=== PATIENT | female | born 1975 | race Caucasian/White ===

== ENCOUNTER → 2018-03-21 15:26 | Outpatient (CLI) | payer OTHER, SELFPAY ==
--- NOTE | 2018-03-21 | DI.RAD.S_ITS ---
PROCEDURE: XR CERVICAL SPINE 2V OR 3V INDICATIONS: 43 year-old female with neck pain 6 weeks after surgery. TECHNIQUE: 3 view(s) of the cervical spine were acquired. COMPARISON: [facility], CERVICAL SPINE 2 OR 3 VIEWS, 09/02/2017, 9:24. FINDINGS: Bones: No fractures or dislocations to the T1 level. The lateral masses of C1 appear intact on the odontoid view. Patient is status post C6-C7 discectomy with interbody fusion. Surgical hardware appears intact and in expected positions. C5-C6 disc degeneration is again noted. No suspicious bony lesions. Soft tissues: No prevertebral soft tissue swelling. IMPRESSION: Status post C6-C7 discectomy with interbody fusion, with surgical hardware intact and in expected positions. Dictated by: Nii Bates M.D. on 03/21/2018 at 16:00 Approved by: Nii Bates M.D. on 03/21/2018 at 16:02
== END ==
PROVIDERS: Family Provider Family Medicine; PCP Family Medicine; Visit Provider Neurological Surgery
DX: M54.2 Cervicalgia (principal)
CPT/HCPCS: 72040

== ENCOUNTER → 2018-04-15 10:06 | Outpatient (CLI) | payer OTHER, SELFPAY ==
--- NOTE | 2018-04-15 | DI.CT.S_ITS ---
PROCEDURE: CT CERVICAL SPINE WO CON INDICATIONS: cervical radiculopathy TECHNIQUE: Noncontrast 3 mm thick sections acquired from the skull base to the T4 level. Sagittal and coronal reformats were then constructed. For radiation dose reduction, the following was used: automated exposure control, adjustment of mA and/or kV according to patient size. COMPARISON: [facility], , C-SPINE WITHOUT CONTRAST, 10/05/2017, 17:11. FINDINGS: Image quality: Excellent. Bones: No fractures or dislocations. Visualized superior ribs are intact. Postsurgical changes related to C6-C7 discectomy and interbody graft placement. There is anterior retaining plate and screws. Expected postoperative alignment. No bridging ossification at this time. No evidence of hardware loosening. Moderate C5-C6 disc degeneration. No bony foraminal stenosis is seen. No bony canal stenosis identified. There is straightening of the normal cervical lordosis. There is mild C4-C5 disc degeneration. Soft tissues: Prevertebral soft tissues are normal in thickness. No paravertebral hematomas. No apical pneumothoraces. There are subcentimeter scattered bilateral cervical lymph nodes, technically non-specific finding. IMPRESSION: Postsurgical change related to C6-C7 anterior cervical discectomy and fusion. Expected postoperative alignment. No evidence of hardware failure or loosening. C4-C5 and C5-C6 disc degeneration as above. Straightening of the normal cervical lordosis. Dictated by: Sy Paul M.D. on 04/15/2018 at 10:35 Approved by: Sy Paul M.D. on 04/15/2018 at 10:49
== END ==
PROVIDERS: Family Provider Family Medicine; PCP Family Medicine; Visit Provider Neurological Surgery
DX: M54.12 Radiculopathy, cervical region (principal); M47.892 Other spondylosis, cervical region
CPT/HCPCS: 72125

== ENCOUNTER → 2018-07-30 09:05 | Outpatient (CLI) | payer OTHER, SELFPAY ==
[2018-07-30 12:15] LABS: TSH w/ Reflex to FT4 0.85 uIU/mL (0.47-4.68)
== END ==
PROVIDERS: PCP Family Medicine; Visit Provider Family Medicine
DX: E03.9 Hypothyroidism, unspecified (principal)
CPT/HCPCS: 36415; 84443

== ENCOUNTER → 2018-08-01 08:56 | Outpatient (CLI) | payer OTHER, SELFPAY | PROVIDERS: Family Provider Family Medicine; PCP Family Medicine; Visit Provider Family Medicine | DX: F31.9 Bipolar disorder, unspecified (principal) | CPT/HCPCS: 80178 ==

== ENCOUNTER → 2018-10-06 08:51 | Outpatient (CLI) | payer OTHER, SELFPAY ==
--- NOTE | 2018-10-06 08:53 | DI.US.S_ITS ---
PROCEDURE: US EXTREMITY NONVASC LOWER LT INDICATIONS: mass in arch of right foot TECHNIQUE: Real-time scanning was performed of the right foot, with image documentation. COMPARISON: None. FINDINGS: Hypoechoic solid-appearing mass present corresponding to the palpable abnormality measuring 1.0 x 0.3 x 0.9 cm. Doppler assessment demonstrated no vascularity. IMPRESSION: A hypoechoic solid-appearing avascular subcutaneous mass corresponding to the palpable abnormality. Findings are nonspecific and if indicated MRI could be performed for further characterization. Dictated by: Shubham Delatorre [facility] Interpreted: Mary Yan MD on 10/06/2018 at 10:44 Approved by: Mary Yan M.D. on 10/06/2018 at 15:16
== END ==
PROVIDERS: PCP Family Medicine; Visit Provider Family Medicine
DX: R22.41 Localized swelling, mass and lump, right lower limb (principal)
CPT/HCPCS: 76882

== ENCOUNTER → 2019-01-23 07:26 | Outpatient (CLI) | payer OTHER, SELFPAY ==
[2019-01-23 09:02] LABS: BUN Creatinine Ratio 16.7 (6-22); Blood Urea Nitrogen 10 mg/dL (7-17); Calcium 9.3 mg/dL (8.4-10.2); Carbon Dioxide 27 mmol/L (22-32); Chloride 104 mmol/L (98-107); Estimated Glomerular Filt Rate > 60.0 mL/min (>60); Glucose 90 mg/dL (70-100); HEMOLYSIS < 15 (0-50); Potassium 4.1 mmol/L (3.4-5.1); Sodium 138 mmol/L (137-145)
[2019-01-23 09:21] LABS: Lithium 0.8 mmol/L (0.6-1.2)
[2019-01-23 09:35] LABS: TSH w/ Reflex to FT4 2.13 uIU/mL (0.47-4.68)
== END ==
PROVIDERS: PCP Family Medicine; Visit Provider Family Medicine
DX: E03.9 Hypothyroidism, unspecified (principal); F31.9 Bipolar disorder, unspecified
CPT/HCPCS: 36415; 80048; 80178; 84443

== ENCOUNTER → 2019-02-03 08:44 | Outpatient (CLI) | payer OTHER, SELFPAY ==
[2019-02-03 13:03] LABS: Lithium 0.3 mmol/L (0.6-1.2)
== END ==
PROVIDERS: PCP Family Medicine; Visit Provider Family Medicine
DX: F31.9 Bipolar disorder, unspecified (principal)
CPT/HCPCS: 36415; 80178

== ENCOUNTER → 2019-10-07 13:30 | Outpatient (CLI) | payer OTHER, SELFPAY ==
--- NOTE | 2019-10-07 | DI.MG.S_ITS ---
BILATERAL DIGITAL SCREENING MAMMOGRAM 3D/2D WITH CAD: 10/07/2019 CLINICAL: Routine screening. Comparison is made to exams dated: 12/08/2017 mammogram, 10/08/2016 mammogram, and 10/22/2015 mammogram - [facility]. There are scattered fibroglandular elements in both breasts. Current study was also evaluated with a Computer Aided Detection (CAD) system. No significant masses, calcifications, or other findings are seen in either breast. There has been no significant interval change. IMPRESSION: NEGATIVE There is no mammographic evidence of malignancy. A 1 year screening mammogram is recommended. This exam was interpreted at Station ID: [id number]. NOTE: For mammograms, a report in lay terms will be sent to the patient. Approximately 15% of breast malignancies will not be visualized mammographically. In the management of a palpable breast mass, a negative mammogram must not discourage biopsy of a clinically suspicious lesion. Electronically Signed By: Bismark Machado M.D. at/:10/09/2019 09:42:09 letter sent: Normal Exam ACR BI-RADS Category 1: Negative 3341F
== END ==
PROVIDERS: PCP Family Medicine; Visit Provider Family Medicine
DX: Z12.31 Encounter for screening mammogram for malignant neoplasm of breast (principal)
CPT/HCPCS: 77063; 77067

== ENCOUNTER → 2019-12-25 08:44 | Outpatient (CLI) | payer OTHER, SELFPAY ==
[2019-12-25 17:27] LABS: TSH w/ Reflex to FT4 2.83 uIU/mL (0.47-4.68)
== END ==
PROVIDERS: PCP Family Medicine; Referring Provider Family Medicine; Visit Provider Family Medicine
DX: E03.9 Hypothyroidism, unspecified (principal)
CPT/HCPCS: 36415; 84443

== ENCOUNTER → 2020-06-20 06:58 | Outpatient (CLI) | payer OTHER, SELFPAY ==
[2020-06-20 08:45] LABS: Add Manual Diff / Slide Review NO; Basophils Absolute Auto 100 /uL (0-100); Basophils Percent Auto 1.1 % (0-2); Eosinophils Absolute Auto 100 /uL (0-450); Eosinophils Percent Auto 1.9 % (2-4); Hematocrit 39.7 % (36-46); Hemoglobin 13.2 g/dL (12.0-16.0); Lymphocytes Absolute Auto 2000 /uL (1100-4500); Lymphocytes Percent Auto 34.8 % (25-40); Mean Corpuscular HGB Conc 33.2 % (30-36); Mean Corpuscular Hemoglobin 30.4 PG (26-34); Mean Corpuscular Volume 91.5 fL (80-100); Monocytes Absolute Auto 400 /uL (0-900); Monocytes Percent Auto 6.6 % (3-14); Neutrophils Absolute Auto 3200 /uL (1500-7000); Neutrophils Percent Auto 55.6 % (50-75); Platelet Count 297 X10^3/uL (150-400); Red Blood Cell Count 4.34 X10^6/uL (4.0-5.2); Red Cell Distribution Width 12.7 % (11.6-14.8); White Blood Cell Count 5.7 X10^3/uL (4.5-11.0)
[2020-06-20 08:56] LABS: Alanine Aminotransferase 16 IU/L (<35); Albumin 4.1 g/dL (3.5-5.0); Albumin Globulin Ratio 1.8 (1.0-2.8); Alkaline Phosphatase 51 U/L (38-126); Aspartate Aminotransferase 24 IU/L (14-36); BUN Creatinine Ratio 33.9 (6-22); Bilirubin Total 0.3 mg/dL (0.2-1.3); Blood Urea Nitrogen 19 mg/dL (7-17); Carbon Dioxide 25 mmol/L (22-32); Chloride 105 mmol/L (98-107); Cholesterol 152 mg/dL (140-199); Estimated Glomerular Filt Rate > 60.0 mL/min (>60); Globulin 2.3 g/dL (1.7-4.1); Glucose 93 mg/dL (70-100); HDL Cholesterol 56 mg/dL (40-60); HEMOLYSIS < 15 (0-50); LDL Cholesterol Calculated 85 mg/dL (<100); Potassium 4.5 mmol/L (3.4-5.1); Sodium 137 mmol/L (137-145); Total Protein 6.4 g/dL (6.3-8.2); Triglycerides 55 mg/dL (35-150)
[2020-06-20 09:09] LABS: Free T3, Triiodothyronine Free 2.82 pg/mL (2.77-5.27); Free T4, Direct Thyroxine 1.11 ng/dL (0.78-2.19)
[2020-06-20 09:23] LABS: Thyroid Stimulating Hormone 1.74 uIU/mL (0.47-4.68)
[2020-06-21 06:36] LABS: Thyroid Peroxidase Antibodies <9 IU/mL (0-34)
== END ==
PROVIDERS: PCP Family Medicine; Referring Provider Family Medicine; Visit Provider Naturopath
DX: Z00.00 Encounter for general adult medical examination without abnormal findings (principal); E03.9 Hypothyroidism, unspecified
CPT/HCPCS: 36415; 80053; 80061; 84439; 84443; 84481; 85025; 86376

== ENCOUNTER → 2020-08-13 11:42 | Outpatient (CLI) | payer OTHER, SELFPAY ==
--- NOTE | 2020-08-13 11:44 | DI.RAD.S_ITS ---
PROCEDURE: XR FOOT LT MIN 3V INDICATIONS: left medial foot pain x1 month TECHNIQUE: 3 views of the foot were acquired. COMPARISON: [facility], CR, FOOT 3V LEFT, 01/14/2015, 8:58. FINDINGS: Bones: No fractures or dislocations. No suspicious bony lesions. Soft tissues: No tibiotalar joint effusion. Achilles tendon appears normal. IMPRESSION: No trauma found. Source of current pain is not seen. Dictated by: Kane Schultz M.D. on 08/13/2020 at 13:22 Approved by: Kane Schultz M.D. on 08/13/2020 at 13:24
== END ==
PROVIDERS: PCP Family Medicine; Referring Provider Family Medicine; Visit Provider Family Medicine
DX: M79.672 Pain in left foot (principal)
CPT/HCPCS: 73630

== ENCOUNTER → 2020-08-19 09:43 | Outpatient (CLI) | payer OTHER, SELFPAY ==
[2020-08-21 08:20] LABS: COVID19 Sendout Not Detected (Not Detect)
== END ==
PROVIDERS: PCP Family Medicine; Visit Provider Physician Assistant
DX: Z11.59 Encounter for screening for other viral diseases (principal)
CPT/HCPCS: 87635

== ENCOUNTER → 2020-09-16 13:56 | Outpatient (CLI) | payer OTHER, SELFPAY ==
[2020-09-16 15:29] LABS: COVID19 -Nasal RAPID Negative (Negative)
== END ==
PROVIDERS: PCP Family Medicine; Visit Provider Physician Assistant
DX: Z11.59 Encounter for screening for other viral diseases (principal)
CPT/HCPCS: 87635

== ENCOUNTER → 2020-10-09 08:06 | Outpatient (CLI) | payer OTHER, SELFPAY ==
--- NOTE | 2020-10-09 | DI.MG.S_ITS ---
BILATERAL DIGITAL SCREENING MAMMOGRAM 3D/2D WITH CAD: 10/09/2020 CLINICAL: Routine screening. Comparison is made to exams dated: 10/07/2019 mammogram, 12/08/2017 mammogram, and 10/08/2016 mammogram - [facility]. There are scattered fibroglandular elements in both breasts. Current study was also evaluated with a Computer Aided Detection (CAD) system. No significant masses, calcifications, or other findings are seen in either breast. There has been no significant interval change. IMPRESSION: NEGATIVE There is no mammographic evidence of malignancy. A 1 year screening mammogram is recommended. This exam was interpreted at Station ID: [id number]. NOTE: For mammograms, a report in lay terms will be sent to the patient. Approximately 15% of breast malignancies will not be visualized mammographically. In the management of a palpable breast mass, a negative mammogram must not discourage biopsy of a clinically suspicious lesion. Electronically Signed By: Jelly joe/edmund:10/09/2020 08:42:37 letter sent: Normal Exam ACR BI-RADS Category 1: Negative 3341F
== END ==
PROVIDERS: PCP Family Medicine; Referring Provider Family Medicine; Visit Provider Family Medicine
DX: Z12.31 Encounter for screening mammogram for malignant neoplasm of breast (principal)
CPT/HCPCS: 77063; 77067

== ENCOUNTER 2021-08-07 15:45 | Emergency (ER) | payer OTHER, SELFPAY ==
[2021-08-07 15:47] VITALS: BP 136/81; PULSE 102; RESP 16; TEMP 36.9; O2SAT 100; BMI 26.6
--- NOTE | 2021-08-07 17:07 | ED.PSYCH ---
HPI - Psych General Chief Complaint: Psychiatric Symptoms Stated Complaint: Not Sleeping Time Seen by Provider: 08/07/21 16:09 Source: patient Mode of arrival: Ambulatory Related Data Previous Rx's Medication Instructions Recorded cyclobenzaprine 10 mg tablet 10 mg PO TID PRN #30 tab 12/26/19 rizatriptan 10 mg disintegrating See Rx Instructions PO .COMPLEX 05/20/20 tablet #20 tab levothyroxine 150 mcg tablet 150 mcg PO QAM #90 tab 11/07/20 (Levoxyl) trazodone 50 mg tablet 100 mg PO HS #180 tab 12/30/20 disulfiram 250 mg tablet 250 mg PO DAILY #30 tab 03/06/21 escitalopram oxalate 20 mg tablet 20 mg PO DAILY #90 tab 04/08/21 naltrexone 8 mg-bupropion 90 mg See Rx Instructions PO BID #120 tab 04/08/21 tablet,extended release (Contrave) alprazolam 0.5 mg tablet 0.5 mg PO BID #30 tab 08/04/21 hydrocodone 5 mg-acetaminophen 325 1 tab PO BID PRN #30 tab 08/04/21 mg tablet Allergies Allergy/AdvReac Type Severity Reaction Status Date / Time No Known Allergies Allergy Uncoded 04/08/21 09:37 Patient History Medical History ADHD (~2015) Anxiety (~2003) Bipolar disorder (~2011) Bulimia Generalized anxiety disorder Hearing deficit Hypothyroidism (~2011) Kidney stones (~2011) Migraines Over weight Post traumatic stress disorder (PTSD) (~2011) Surgical History Anesthesia Family history of stent (~2011) S/P cervical spinal fusion S/P laparoscopic supracervical hysterectomy Status post delivery (~1991) Status post delivery (~2000) Status post cholecystectomy (~2003) Status post hysterectomy (~2006) Family History Grandfather Heart disease Grandmother Diabetes mellitus Father Lung cancer Social History marital status: 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 Smoking Status: Former smoker alcohol intake: current substance use type: does not use Smoking Status: Former smoker alcohol intake frequency: 0-2 drinks per day Substance Use Type: marijuana Exam Initial Vital Signs Initial Vital Signs: Vital Signs Temperature 98.5 F 08/07/21 15:47 Pulse Rate 102 H 08/07/21 15:47 Respiratory Rate 16 08/07/21 15:47 Blood Pressure 136/81 08/07/21 15:47 Pulse Oximetry 100 08/07/21 15:47 Course Orders Ordered: ED Orders 08/07/21 16:14 Consult to SPRAY MIXER - Greens Laborer Stat Vital Signs Vital signs: Vital Signs - 8 hr 08/07/21 15:47 Temperature 98.5 F Pulse Rate 102 H Respiratory Rate 16 Blood Pressure 136/81 Pulse Oximetry 100 Discharge Plan Departure Prescriptions: No Action cyclobenzaprine 10 mg tablet 10 mg PO TID PRN (Reason: muscle spasm) Qty: 30 RF: 0 disulfiram 250 mg tablet 250 mg PO DAILY Qty: 30 RF: 0 hydrocodone-acetaminophen 5-325 mg tablet 1 tab PO BID PRN (Reason: pain) Qty: 30 RF: 0 alprazolam 0.5 mg tablet 0.5 mg PO BID Qty: 30 RF: 0 Contrave 8-90 mg tablet extended release See Rx Instructions PO BID Qty: 120 RF: 2 escitalopram oxalate 20 mg tablet 20 mg PO DAILY Qty: 90 RF: 3 rizatriptan 10 mg tablet,disintegrating See Rx Instructions PO .COMPLEX Qty: 20 RF: 0 levothyroxine [Levoxyl] 150 mcg tablet 150 mcg PO QAM Qty: 90 RF: 3 trazodone 50 mg tablet 100 mg PO HS Qty: 180 RF: 3 Referrals: Guadalupe Hollis DO [Primary Care Provider] -
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
[2021-08-07] MEDS: HYDROCODONE/ACET 5/325 TABLET 1 TAB PO (17:52)
[2021-08-07] MEDS: LORazepam 0.5 MG TABLET 1 MG PO (17:53)
[2021-08-07 18:09] LABS: Add Manual Diff / Slide Review NO; Basophils Absolute Auto 100 /uL (0-100); Basophils Percent Auto 0.8 % (0-2); Eosinophils Absolute Auto 100 /uL (0-450); Eosinophils Percent Auto 0.7 % (2-4); Hematocrit 37.6 % (36-46); Hemoglobin 12.6 g/dL (12.0-16.0); Lymphocytes Absolute Auto 1800 /uL (1100-4500); Lymphocytes Percent Auto 19.6 % (25-40); Mean Corpuscular HGB Conc 33.6 % (30-36); Mean Corpuscular Hemoglobin 30.7 PG (26-34); Mean Corpuscular Volume 91.3 fL (80-100); Monocytes Absolute Auto 400 /uL (0-900); Monocytes Percent Auto 4.6 % (3-14); Neutrophils Absolute Auto 6800 /uL (1500-7000); Neutrophils Percent Auto 74.3 % (50-75); Platelet Count 402 X10^3/uL (150-400); Red Blood Cell Count 4.12 X10^6/uL (4.0-5.2); Red Cell Distribution Width 12.8 % (11.6-14.8); White Blood Cell Count 9.1 X10^3/uL (4.5-11.0)
[2021-08-07 18:24] LABS: Alanine Aminotransferase 28 IU/L (<35); Albumin 4.4 g/dL (3.5-5.0); Albumin Globulin Ratio 1.8 (1.0-2.8); Alkaline Phosphatase 49 U/L (38-126); Aspartate Aminotransferase 35 IU/L (14-36); Bilirubin Total 0.3 mg/dL (0.2-1.3); Blood Urea Nitrogen 13 mg/dL (7-17); Calcium 8.9 mg/dL (8.4-10.2); Carbon Dioxide 26 mmol/L (22-32); Chloride 104 mmol/L (98-107); Estimated Glomerular Filt Rate > 60.0 mL/min (>60); Ethanol (ETOH) < 10 mg/dL; Globulin 2.5 g/dL (1.7-4.1); Glucose 84 mg/dL (70-100); HEMOLYSIS < 15 (0-50); Potassium 3.8 mmol/L (3.4-5.1); Sodium 137 mmol/L (137-145); Total Protein 6.9 g/dL (6.3-8.2)
[2021-08-07 19:02] LABS: COVID19 - ADMIT (NP swab/PCR) Negative (Negative)
[2021-08-07 19:03] LABS: Thyroid Stimulating Hormone 2.53 uIU/mL (0.47-4.68)
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
== END 2021-08-07 19:25 | disposition home or self-care (01) ==
PROVIDERS: Emergency Provider Nurse Practitioner Critical Care Medicine; PCP Family Medicine
DX: F51.04 Psychophysiologic insomnia (principal); F31.9 Bipolar disorder, unspecified; Z20.822 Contact with and (suspected) exposure to COVID-19
CPT/HCPCS: 80053; 80320; 84443; 85025; 87635; 99283; C9803

== ENCOUNTER 2021-08-19 05:56 | Emergency (ER) | payer OTHER, SELFPAY ==
[2021-08-19] VITALS (7 sets, daily range): BP systolic 124–134; BP diastolic 63–87; PULSE 62–86; RESP 14–30; TEMP 36.4; O2SAT 96–100; BMI 26.6
--- NOTE | 2021-08-19 05:55 | ED.GENADULT ---
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 Urine Glucose Negative Bedside Urine Bilirubin - Negative Bedside Urine Ketone - Negative Urine Specific [place] 1.015 Bedside Urine Occult Blood - Negative Bedside Urine pH 7.5 Bedside Urine Protein - Negative Bedside Urine Urobilinogen - Negative Bedside Urine Nitrite - Negative Bedside Urine Leukocytes - Negative Esterase Discharge Plan Departure Patient Disposition: Xfer Psychiatric Hosp Clinical Impression: Bipolar I disorder with marry Referrals: Guadalupe Hollis DO [Primary Care Provider] - <Jimmie Pineda DO - Last Filed: 08/22/21 08:37> Restraint Uucy-zn-Qije Evaluation Lnqm-fg-Tlye #1: Date: 08/19/21 Time: 10:45 Patient Appearance: Well Groomed Level of Consciousness: Alert and Awake Speech Pattern: Animated, Pressured and Rambling Mood Description: Angry, Anxious, Fearful and Suspicious Ability to Follow Directions: Poor Hallucination Type: None Thought Process: Disorganized, Perseveration and Flight of ideas Respirations: Normal respiratory rate Cardiac: Regular Rate Circulation: Moves all extremities Behavior necessitating restraint: Agitated and Paranoid/Delusional Restraint risks explained to patient: Yes Restraint risks explained to family: Yes Reaction to Intervention: Restless, Indicating Needs and Agitated, Constant Movement Restraint Needs: Continue Restraints Additional Comments: trusted family friend contacted to come be with patient
[2021-08-19] MEDS: SODIUM CHLORIDE 0.9% 1,000 ML 150 ML IV (06:32)
[2021-08-19 06:46] LABS: Acetaminophen < 10 ug/mL (10-30); Salicylate < 1.0 mg/dL (<20)
[2021-08-19 07:34] LABS: COVID19 - ADMIT (NP swab/PCR) Negative (Negative)
[2021-08-19 09:08] LABS: Appearance Urine UA CLEAR; Bilirubin Urine UA NEGATIVE (NEGATIVE); Color Urine UA YELLOW; Glucose Urine UA NEGATIVE (Negative); Ketones Urine UA NEGATIVE (NEGATIVE); Leukocyte Esterase Urine UA NEGATIVE (NEGATIVE); Nitrite Urine UA NEGATIVE (Negative); Occult Blood Urine UA NEGATIVE (Negative); Protein Urine UA NEGATIVE (Negative); Urobilinogen Urine UA 0.2 E.U./dL (0.2); pH Urine UA 7.5 (4.5-8.0)
[2021-08-19 09:09] LABS: Ur Creatinine Normal (Normal); Ur Specific Gravity Normal (Normal); Urine pH Normal (Normal)
[2021-08-19 09:10] LABS: UR Morphine/Opiate cutoff 300 Negative (Negative); Urine Amphetamines Negative (Negative); Urine Barbiturates Negative (Negative); Urine Benzodiazepines Positive (Negative); Urine Cocaine Negative (Negative); Urine MDMA Negative (Negative); Urine Methadone Negative (Negative); Urine Methamphetamines Negative (Negative); Urine Oxycodone Negative (Negative); Urine Phencyclidine Negative (Negative); Urine Tetrahydrocannabinol Positive (Negative); Urine Tricyclic Antidepressant Negative (Negative)
[2021-08-19 09:16] LABS: Bacteria Urine None Seen; Culture Indicated Urine Cult Not Indicated; RBC Urine None Seen (0-5/HPF); Urine Comments Microscopic Normal; WBC Urine None Seen (0-5/HPF)
--- NOTE | 2021-08-19 10:07 | PC.NURSE ---
Pt given multiple toiletry items and washcloths as requested to wash up in bathroom. AAOx3 at this time. requesting IV removal. OK'd by Dr Pineda.
[2021-08-19 10:19] LABS: Add Manual Diff / Slide Review NO; Basophils Absolute Auto 100 /uL (0-100); Basophils Percent Auto 1.2 % (0-2); Eosinophils Absolute Auto 100 /uL (0-450); Eosinophils Percent Auto 1.1 % (2-4); Hematocrit 35.7 % (36-46); Hemoglobin 11.9 g/dL (12.0-16.0); Lymphocytes Absolute Auto 1400 /uL (1100-4500); Lymphocytes Percent Auto 20.3 % (25-40); Mean Corpuscular HGB Conc 33.4 % (30-36); Mean Corpuscular Hemoglobin 30.6 PG (26-34); Mean Corpuscular Volume 91.6 fL (80-100); Monocytes Absolute Auto 300 /uL (0-900); Monocytes Percent Auto 4.9 % (3-14); Neutrophils Absolute Auto 4800 /uL (1500-7000); Neutrophils Percent Auto 72.5 % (50-75); Platelet Count 346 X10^3/uL (150-400); Red Cell Distribution Width 13.3 % (11.6-14.8); White Blood Cell Count 6.7 X10^3/uL (4.5-11.0)
[2021-08-19 10:26] LABS: Acetaminophen < 10 ug/mL (10-30); Alanine Aminotransferase 57 IU/L (<35); Albumin 4.1 g/dL (3.5-5.0); Alkaline Phosphatase 46 U/L (38-126); Aspartate Aminotransferase 37 IU/L (14-36); BUN Creatinine Ratio 32.7 (6-22); Bilirubin Total 0.4 mg/dL (0.2-1.3); Blood Urea Nitrogen 16 mg/dL (7-17); Carbon Dioxide 26 mmol/L (22-32); Chloride 105 mmol/L (98-107); Estimated Glomerular Filt Rate > 60.0 mL/min (>60); Ethanol (ETOH) < 10 mg/dL; Globulin 2.1 g/dL (1.7-4.1); Glucose 100 mg/dL (70-100); HEMOLYSIS 17 (0-50); Potassium 4.3 mmol/L (3.4-5.1); Salicylate < 1.0 mg/dL (<20); Sodium 138 mmol/L (137-145); Total Protein 6.2 g/dL (6.3-8.2)
[2021-08-19 10:42] LABS: Free T4, Direct Thyroxine 1.49 ng/dL (0.78-2.19)
[2021-08-19 10:56] LABS: Thyroid Stimulating Hormone 0.552 uIU/mL (0.47-4.68)
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
--- NOTE | 2021-08-19 13:59 | PC.NURSE ---
Pt. was provided with a shower. As well as Oral care provided. Daughter is at bedside with patient. Patient continues to be very tearful and apologetic. RN notified.
--- NOTE | 2021-08-19 13:59 | PC.NURSE ---
Pt consulted on by HORACE Mercer. Friend in room visiting. Pt eating lunch. states she would like to shower. assisted to shower by COMMUNITY YOUTH SECRETARY. calm and cooperative at this time. awaiting further orders.
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
--- NOTE | 2021-08-19 14:54 | CM.SWNOTE ---
Addendum entered by Sylvie Rousseau 08/19/21 16:36: HEM INSPECTOR Note HEM INSPECTOR receives call from Dony at [facility] who endorses that patient is accepted pending a normal EKG. It is reported that the accepting provider is Dr. Artem Voss with an estimated arrival time at 1:00 AM. Intake requests that patient bring prescribed medications. HEM INSPECTOR calls patient's daughter and requests that family bring in patient's prescribed medications in case she needs them at accepting facility. Plan: Patient to transfer to [facility] for voluntary inpatient hospitalization. HORACE Joseph Addendum entered by Sylvie Rousseau 08/19/21 15:21: HEM INSPECTOR Note HEM INSPECTOR calls [facility] intake and leaves requesting return call. HEM INSPECTOR receives calls from [facility] [place] and it is reported that they have one female shared room bed, patient is asked about a shared room and declines with preference of private room. HEM INSPECTOR receives call from [facility], it is reported that patient is declined due to high acuity. HEM INSPECTOR endorses that patient has been calm and communicative, but intake continues to decline patient. HEM INSPECTOR calls [facility] and reviews patient with intake, it is reported that they have beds and can review patient. HEM INSPECTOR faxes clinicals for review. Intake reports that they would like to speak with patient on the phone if accepted due to need to confirm patient's ability to accept medications prescribed and voluntarily agree to facility requests. Sylvie Rousseau, HORACE Original Note: HEM INSPECTOR Note HEM INSPECTOR calls [facility] for voluntary bed census. HEM INSPECTOR calls [facility] intake and leaves requesting return call. HEM INSPECTOR calls [facility] intake, it is reported they can review patient but have limited beds. HEM INSPECTOR faxes clinicals for review. HEM INSPECTOR calls [facility] intake and leaves requesting return call. HEM INSPECTOR calls [facility] intake and it is reported that they have beds and can review patient. HEM INSPECTOR faxes clinicals for review. HEM INSPECTOR calls [facility] intake and [facility] intake and it is reported that they do not have beds. Previously patient stated she did not want to go to [facility]. When patient was meeting with her daughter, patient endorses she would go to [facility]. Patient's daughter, friend and have written declarations in support of patient going to inpatient hospitalization. It is the opinion of this HEM INSPECTOR if patient no longer wants to voluntary seek inpatient, HEM INSPECTOR will contact [facility] for dispatch. Plan: HEM INSPECTOR to seek voluntary inpatient bed for patient. HORACE Joseph
--- NOTE | 2021-08-19 16:08 | PC.NURSE ---
Q15 restraint safety checks being done by staff but were documented under patient safety monitoring
--- NOTE | 2021-08-19 16:27 | PC.NURSE ---
Spoke to Asael RN at [facility] and nurse to nurse report given. Advised they will need an EKG to be faxed and RT at bedside for EKG at this time
[2021-08-19] MEDS: LORazepam 0.5 MG TABLET 1 MG PO (17:20)
--- NOTE | 2021-08-19 19:08 | PC.NURSE ---
Starting watch, Introduced myself to the patient and asked is she wanted anything, food, drinks, she was interested in eating.
--- NOTE | 2021-08-19 19:23 | PC.NURSE ---
Patient has started crying, saying she loves her . She is worried about his wellbeing while she is checking into a center.
--- NOTE | 2021-08-19 19:35 | PC.NURSE ---
Patient is calm and asking about a calming medication that was given a bit ago and would like another one. Also patient is enjoying snacking on peanut butter and lalo crackers.
--- NOTE | 2021-08-19 20:02 | PC.NURSE ---
Patient is calm and remaking her bed. She also asked for another hot cider.
[2021-08-19] MEDS: LORazepam 0.5 MG TABLET 2 MG PO (20:21)
[2021-08-19] MEDS: QUETIAPINE 100 MG TABLET 200 MG PO (21:59)
== END 2021-08-19 23:44 ==
PROVIDERS: Emergency Medicine; Emergency Provider Emergency Medicine; PCP Family Medicine
DX: F30.9 Manic episode, unspecified (principal); F41.9 Anxiety disorder, unspecified; R45.1 Restlessness and agitation; Z20.822 Contact with and (suspected) exposure to COVID-19
CPT/HCPCS: 36415; 80053; 80305; 80320; 80329; 81001; 81003; 81025; 84439; 84443; 85025; 87635; 93005; 96360; 96361; 99285; C9803; G0480

== ENCOUNTER → 2021-08-26 07:53 | Outpatient (CLI) | payer OTHER, SELFPAY ==
--- NOTE | 2021-08-26 07:53 | DI.US.S_ITS ---
PROCEDURE: US ABDOMEN LIMITED INDICATIONS: FOLLOW-UP ABDOMINAL WALL HEMATOMA TECHNIQUE: Real-time focused scanning was performed of the abdomen, with image documentation. COMPARISON: [facility], CT, CT ABDOMEN PELVIS WITH CONTRAST, 07/29/2021, 15:22. FINDINGS: On these ultrasound images, no abdominal wall hematoma is now seen. IMPRESSION: No abdominal wall hematoma is seen on these ultrasound images. Dictated by: Paco Brizuela M.D. on 08/26/2021 at 8:04 Approved by: Paco Brizueal M.D. on 08/26/2021 at 8:04
== END ==
PROVIDERS: PCP Family Medicine; Referring Provider Family Medicine; Visit Provider Family Medicine
DX: S30.1XXA Contusion of abdominal wall, initial encounter (principal); R10.32 Left lower quadrant pain; X58.XXXA Exposure to other specified factors, initial encounter
CPT/HCPCS: 76705

== ENCOUNTER → 2021-09-08 07:36 | Outpatient (CLI) | payer OTHER, SELFPAY ==
[2021-09-08 09:01] LABS: Follicle Stimulating Hormone 6.63 mIU/mL
== END ==
PROVIDERS: PCP Family Medicine; Referring Provider Family Medicine; Visit Provider Family Medicine
DX: N95.1 Menopausal and female climacteric states (principal)
CPT/HCPCS: 36415; 83001

== ENCOUNTER → 2021-11-22 16:30 | Outpatient (CLI) | payer OTHER, SELFPAY ==
[2021-11-22 18:24] LABS: Urine N gonorrhoeae NOT DETECTED
[2021-11-22 18:30] LABS: Urine Chlamydia NOT DETECTED
== END ==
PROVIDERS: PCP Family Medicine; Visit Provider Physician Assistant
DX: N89.8 Other specified noninflammatory disorders of vagina (principal); R30.0 Dysuria
CPT/HCPCS: 87086; 87210; 87491; 87591

== ENCOUNTER 2021-11-24 12:30 | Emergency (ER) | payer OTHER, SELFPAY ==
[2021-11-24 13:13] VITALS: BP 111/71; PULSE 84; RESP 16; TEMP 36.7; O2SAT 100
[2021-11-24 13:25] LABS: UR Morphine/Opiate cutoff 300 Negative (Negative); Ur Creatinine Normal (Normal); Ur Specific Gravity Normal (Normal); Urine Amphetamines Negative (Negative); Urine Barbiturates Negative (Negative); Urine Benzodiazepines Negative (Negative); Urine Cocaine Negative (Negative); Urine MDMA Negative (Negative); Urine Methadone Negative (Negative); Urine Methamphetamines Negative (Negative); Urine Oxycodone Negative (Negative); Urine Phencyclidine Negative (Negative); Urine Tetrahydrocannabinol Negative (Negative); Urine Tricyclic Antidepressant Negative (Negative); Urine pH Normal (Normal)
[2021-11-25 18:51] LABS: HIV 1 & 2 Ab/Ag 4th Gen Combo NEGATIVE (NEGATIVE)
[2021-11-26 18:41] LABS: Treponema pallidum Antibodies Non Reactive (Non Reactive)
--- NOTE | 2021-11-27 12:48 | ED_ITS ---
HPI - Female Genitourinary <Alex Keith PA-C - Last Filed: 12/01/21 07:43> General Chief complaint: Urogenital-Female Stated complaint: Manic Episode Time Seen by Provider: 11/24/21 12:43 Source: patient Mode of arrival: Ambulatory History of Present Illness HPI Narrative: 46-year-old female with past medical history bulimia, bipolar disorder, anxiety, hypothyroidism, migraines presents to the ED with several days of vaginal discharge and discomfort. Patient states she has a history of bipolar disorder, had a manic episode in August 2021, had unprotected sex, following which she has had a thick white vaginal discharge, discomfort, feeling that her cervix is descended compared to before. Patient is brought in by her friend who is currently taking care of for. Patient says she is back on her medications now and is in a hypomaniac phase. Patient wishes to be tested for STIs, have her cervix checked out. Patient denies history of prolapse. Patient denies vaginal trauma. Patient was seen in the walk-in clinic, sent to the ED for a pelvic exam and further testing. Patient tested negative for gonorrhea and chlamydia in the walk-in clinic. Patient denies fever, chills, chest pain, shortness of breath, nausea, vomiting, abdominal pain, dysuria, lightheadedness, dizziness, syncope. Patient denies vaginal bleeding, is status post a hysterectomy. Related Data Previous Rx's Medication Instructions Recorded rizatriptan 10 mg disintegrating See Rx Instructions PO .COMPLEX 05/20/20 tablet #20 tab trazodone 50 mg tablet 100 mg PO HS #180 tab 12/30/20 escitalopram oxalate 20 mg tablet 20 mg PO DAILY #90 tab 04/08/21 cyclobenzaprine 10 mg tablet 10 mg PO TID PRN #30 tab 08/25/21 gabapentin 100 mg capsule 100 mg PO TID #90 cap 08/25/21 levothyroxine 150 mcg tablet See Rx Instructions .ROUTE 09/02/21 (Levoxyl) .COMPLEX #90 tab Allergies Allergy/AdvReac Type Severity Reaction Status Date / Time No Known Allergies Allergy Uncoded 11/22/21 16:25 Review of Systems <Alex Keith PA-C - Last Filed: 12/01/21 07:43> Review of Systems ROS Unobtainable: All systems reviewed & are unremarkable except as noted in HPI and below Constitutional Constitutional: Denies chills, Denies fatigue, Denies fever(s), Denies frequent falls, Denies lethargy and Denies weakness Eyes Eyes: Denies change in vision, Denies eye discharge, Denies irritation and Denies loss of vision ENT Ears, Nose, Mouth, and Throat: Denies change in voice, Denies dizziness, Denies neck pain, Denies sore throat and Denies throat swelling Cardiovascular Cardiovascular: Denies chest pain, Denies irregular heart rhythm, Denies lightheadedness, Denies palpitations, Denies dyspnea, Denies dyspnea on exertion and Denies orthopnea Respiratory Respiratory: Denies cough, Denies dyspnea, Denies dyspnea on exertion and Denies wheezing Gastrointestinal Gastrointestinal: Denies abdominal pain, Denies change in bowel habits, Denies diarrhea, Denies nausea and Denies vomiting Genitourinary Genitourinary: Denies hematuria, Denies flank pain, Denies urinary incontinence, Denies urinary urgency and Reports vaginal discharge Comments: feels cervix is descended compared to before, along with some discomfort. Musculoskeletal Musculoskeletal: Denies back pain, Denies muscle weakness, Denies neck pain, Denies numbness and Denies tingling Integumentary/Breasts Skin/Breast: Denies pruritus, Denies erythema, Denies rash and Denies wounds Neurologic Neurologic: Denies behavioral changes, Denies confusion, Denies dizziness, Denies frequent falls, Denies loss of vision, Denies numbness, Denies tingling and Denies weakness Psychiatric Psychiatric: Denies anxiety, Denies behavioral changes, Denies confusion, Denies depression, Denies homicidal ideation and Denies suicidal ideation Endocrine Endocrine: Denies fatigue, Denies flushing and Denies palpitations Hematologic/Lymphatic Hematologic/Lymphatic: Denies easy bruising Allergic/Immunologic Allergic/Immunologic: Denies urticaria, Denies throat swelling and Denies wheezing Patient History <Alex Keith PA-C - Last Filed: 12/01/21 07:43> Medical History ADHD (~2015) Anxiety (~2003) Bipolar disorder (~2011) Bulimia Generalized anxiety disorder Hearing deficit Hypothyroidism (~2011) Kidney stones (~2011) Migraines Post traumatic stress disorder (PTSD) (~2011) Surgical History Anesthesia Family history of stent (~2011) S/P cervical spinal fusion S/P laparoscopic supracervical hysterectomy Status post delivery (~1991) Status post delivery (~2000) Status post cholecystectomy (~2003) Status post hysterectomy (~2006) Family History Grandfather Heart disease Grandmother Diabetes mellitus Father Lung cancer alcohol intake frequency: 0-2 drinks per day Substance Use Type: marijuana Exam <Alex Keith PA-C - Last Filed: 12/01/21 07:43> Initial Vital Signs Initial Vital Signs: Vital Signs Temperature 98.1 F 11/24/21 13:13 Pulse Rate 84 11/24/21 13:13 Respiratory Rate 16 11/24/21 13:13 Blood Pressure 111/71 11/24/21 13:13 Pulse Oximetry 100 11/24/21 13:13 Const General: cooperative, healthy appearing and comfortable HENMT Head: normal to inspection Eyes General: appearance normal, both eyes and all related structures Neck Neck: normal visual inspection Resp Effort & Inspection: normal respiratory effort Auscultation: clear to auscultation bilaterally Cardio Rate: regular rate Rhythm: regular rhythm GI Inspection: normal to inspection Other: abdomen is soft, nondistended, nontender to palpation. General: No CVA tenderness External Female Exam: normal external appearance Speculum Exam - Vagina: normal appearance of the vagina, normal vaginal discharge, no foreign bodies, no lacerations, No vaginal bleeding, no swelling and nontender Speculum Exam - Cervix: normal appearance of the cervix, closed and nontender Bimanual Exam- Vagina & Uterus: normal bimanual exam, normal palpation, normal palpation and No tender OB/External & Speculum: no foreign bodies and No vaginal bleeding Skin General: no rashes or lesions noted Neuro General: patient alert, patient awake and patient oriented x3 Psych Appearance: grossly normal <Chantelle Horta DO - Last Filed: 12/03/21 05:04> Initial Vital Signs Initial Vital Signs: Vital Signs Temperature 98.1 F 11/24/21 13:13 Pulse Rate 84 11/24/21 13:13 Respiratory Rate 16 11/24/21 13:13 Blood Pressure 111/71 11/24/21 13:13 Pulse Oximetry 100 11/24/21 13:13 MDM - Female Genitourinary <Alex Keith PA-C - Last Filed: 12/01/21 07:43> Medical Records Attestation: I reviewed the patient's medical records. Lab Data Attestation: I reviewed the patient's lab results. Lab results narrative: wet prep negative. GC negative. UA negative. Labs: Lab Results 11/24/21 11/24/21 11/24/21 Range/Units 12:54 19:18 19:18 U Opiates 300ng/mL cut Negative (Negative) Ur Oxycodone Screen Negative (Negative) Urine Methadone Screen Negative (Negative) Ur Barbiturates Screen Negative (Negative) U Tricyclic Antidepress Negative (Negative) Ur Phencyclidine Scrn Negative (Negative) Ur Amphetamines Screen Negative (Negative) U Methamphetamines Scrn Negative (Negative) Ur MDMA Scrn (Ecstasy) Negative (Negative) U Benzodiazepines Scrn Negative (Negative) Urine Cocaine Screen Negative (Negative) U Marijuana (THC) Screen Negative (Negative) Treponema pallidum Ab Non reactive (Non Reactive) HIV 1&2 Ab/P24 Ag 4thGn Negative (NEGATIVE) Point of Care Testing Test Results Negative Urine Dip Bedside Urine Glucose Negative Bedside Urine Bilirubin - Negative Bedside Urine Ketone - Negative Urine Specific [place] 1.010 Bedside Urine Occult Blood - Negative Bedside Urine pH 6.5 Bedside Urine Protein - Negative Bedside Urine Urobilinogen - Negative Bedside Urine Nitrite - Negative Bedside Urine Leukocytes - Negative Esterase MDM Narrative Medical decision making narrative: 46-year-old female with past medical history bulimia, bipolar disorder, anxiety, hypothyroidism, migraines presents to the ED with several days of vaginal discharge and discomfort. Concern for STI versus HIV bacterial vaginosis vs diaz vs trichomonas versus prolapse. Pelvic exam unremarkable. Patient was negative for gonorrhea and chlamydia, UTI from the walk-in clinic. Will order tests for syphilis, HIV, wet prep. Likely discharge home. Wet prep negative. HIV and treponema pending results. 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 Will call patient with results. Patient verbalized understanding. <Chantelle Horta DO - Last Filed: 12/03/21 05:04> Lab Data Labs: Lab Results 11/24/21 11/24/21 11/24/21 Range/Units 12:54 19:18 19:18 U Opiates 300ng/mL cut Negative (Negative) Ur Oxycodone Screen Negative (Negative) Urine Methadone Screen Negative (Negative) Ur Barbiturates Screen Negative (Negative) U Tricyclic Antidepress Negative (Negative) Ur Phencyclidine Scrn Negative (Negative) Ur Amphetamines Screen Negative (Negative) U Methamphetamines Scrn Negative (Negative) Ur MDMA Scrn (Ecstasy) Negative (Negative) U Benzodiazepines Scrn Negative (Negative) Urine Cocaine Screen Negative (Negative) U Marijuana (THC) Screen Negative (Negative) Treponema pallidum Ab Non reactive (Non Reactive) HIV 1&2 Ab/P24 Ag 4thGn Negative (NEGATIVE) Point of Care Testing Test Results Negative Urine Dip Bedside Urine Glucose Negative Bedside Urine Bilirubin - Negative Bedside Urine Ketone - Negative Urine Specific [place] 1.010 Bedside Urine Occult Blood - Negative Bedside Urine pH 6.5 Bedside Urine Protein - Negative Bedside Urine Urobilinogen - Negative Bedside Urine Nitrite - Negative Bedside Urine Leukocytes - Negative Esterase Discharge Plan Departure Patient Disposition: Home Clinical Impression: Vaginal discharge Instructions: DI for Pelvic Pain Activity Restrictions/Additional Instructions: Were evaluated in the ED today for vaginal discharge. Your labs for gonorrhea, chlamydia, bacterial vaginitis were negative. The test for HIV and syphilis is still being processed and will take 2 days for results. You may call us back in the ED for results. Please follow-up with your hemmer automatic for further workup. Prescriptions: No Action escitalopram oxalate 20 mg tablet 20 mg PO DAILY Qty: 90 3RF gabapentin 100 mg capsule 100 mg PO TID Qty: 90 1RF cyclobenzaprine 10 mg tablet 10 mg PO TID PRN (Reason: muscle spasm) Qty: 30 0RF rizatriptan 10 mg tablet,disintegrating See Rx Instructions PO .COMPLEX Qty: 20 0RF Rx Instructions: take 1 tab at onset of headache; if no relief may repeat 1 tab in 2hr; max = 3 tabs/day (24hr) PO trazodone 50 mg tablet 100 mg PO HS Qty: 180 3RF levothyroxine [Levoxyl] 150 mcg tablet See Rx Instructions .ROUTE .COMPLEX Qty: 90 3RF Dose Instruction: TAKE 1 TABLET EVERY MORNING Rx Instructions: TAKE 1 TABLET EVERY MORNING Referrals: Guadalupe Hollis DO [Primary Care Provider] - <Chantelle Horta DO - Last Filed: 12/03/21 05:04> Cosign ED Attending Cosignature Attestation: I was immediately available in the department for consultation. Documentation has been reviewed.
== END 2021-11-24 20:28 | disposition home or self-care (01) ==
PROVIDERS: Emergency Medicine; Emergency Provider Student in an Organized Health Care Education/Training Program; PCP Family Medicine
DX: N89.8 Other specified noninflammatory disorders of vagina (principal); R10.2 Pelvic and perineal pain
CPT/HCPCS: 36415; 80305; 81003; 81025; 86780; 87210; 87389; 99282

== ENCOUNTER → 2021-12-12 15:40 | Outpatient (CLI) | payer OTHER, SELFPAY | PROVIDERS: PCP Family Medicine; Visit Provider Family Medicine | DX: N76.0 Acute vaginitis (principal) | CPT/HCPCS: 87070; 87205; 87210; 87252 ==

== ENCOUNTER → 2021-12-29 15:09 | Outpatient (CLI) | payer OTHER, SELFPAY ==
[2021-12-31 05:46] LABS: Candida species Negative (Negative); Gardnerella vaginalis Negative (Negative); Trichomoas vaginalis Negative (Negative)
== END ==
PROVIDERS: PCP Family Medicine; Visit Provider Obstetrics & Gynecology
DX: B96.89 Other specified bacterial agents as the cause of diseases classified elsewhere (principal); N76.0 Acute vaginitis
CPT/HCPCS: 87480; 87510; 87660

== ENCOUNTER → 2022-12-18 14:36 | Outpatient (CLI) | payer OTHER, SELFPAY ==
[2022-12-18 15:22] LABS: Add Manual Diff / Slide Review NO; Basophils Absolute Auto 100 /uL (0-100); Basophils Percent Auto 0.8 % (0-2); Eosinophils Absolute Auto 100 /uL (0-450); Eosinophils Percent Auto 1.1 % (2-4); Hematocrit 44.2 % (36-46); Hemoglobin 14.9 g/dL (12.0-16.0); Lymphocytes Absolute Auto 2200 /uL (1100-4500); Lymphocytes Percent Auto 32.1 % (25-40); Mean Corpuscular HGB Conc 33.8 % (30-36); Mean Corpuscular Hemoglobin 30.2 PG (26-34); Mean Corpuscular Volume 89.4 fL (80-100); Monocytes Absolute Auto 400 /uL (0-900); Monocytes Percent Auto 6.7 % (3-14); Neutrophils Absolute Auto 4000 /uL (1500-7000); Neutrophils Percent Auto 59.3 % (50-75); Platelet Count 288 X10^3/uL (150-400); Red Blood Cell Count 4.95 X10^6/uL (4.0-5.2); White Blood Cell Count 6.7 X10^3/uL (4.5-11.0)
[2022-12-18 15:38] LABS: Alanine Aminotransferase 17 IU/L (<35); Albumin 4.7 g/dL (3.5-5.0); Albumin Globulin Ratio 1.6 (1.0-2.8); Alkaline Phosphatase 66 U/L (38-126); Aspartate Aminotransferase 23 IU/L (14-36); BUN Creatinine Ratio 20.7 (6-22); Bilirubin Total 0.4 mg/dL (0.2-1.3); Blood Urea Nitrogen 12 mg/dL (7-17); Calcium 9.2 mg/dL (8.4-10.2); Carbon Dioxide 32 mmol/L (22-32); Chloride 100 mmol/L (98-107); Estimated Glomerular Filt Rate > 60 mL/min (>60); Glucose 88 mg/dL (70-100); HEMOLYSIS < 15 (0-50); Potassium 3.9 mmol/L (3.4-5.1); Sodium 140 mmol/L (137-145); Total Protein 7.7 g/dL (6.3-8.2)
[2022-12-18 15:55] LABS: Free T3, Triiodothyronine Free 3.41 pg/mL (2.77-5.27); Free T4, Direct Thyroxine 0.93 ng/dL (0.78-2.19)
[2022-12-18 16:09] LABS: Thyroid Stimulating Hormone 3.46 uIU/mL (0.47-4.68)
== END ==
PROVIDERS: PCP Family Medicine; Referring Provider Family Medicine; Visit Provider Family Medicine
DX: E03.9 Hypothyroidism, unspecified (principal); E55.9 Vitamin D deficiency, unspecified; F32.A Depression, unspecified
CPT/HCPCS: 36415; 80053; 82306; 84439; 84443; 84481; 85025

== ENCOUNTER → 2023-12-08 07:47 | Outpatient (CLI) | payer OTHER, SELFPAY ==
[2023-12-08 08:43] LABS: Add Manual Diff / Slide Review NO; Basophils Absolute Auto 100 /uL (0-100); Basophils Percent Auto 0.7 % (0-2); Eosinophils Absolute Auto 100 /uL (0-450); Eosinophils Percent Auto 0.9 % (2-4); Hematocrit 38.9 % (36-46); Hemoglobin 13.2 g/dL (12.0-16.0); Lymphocytes Absolute Auto 2000 /uL (1100-4500); Lymphocytes Percent Auto 29.2 % (25-40); Mean Corpuscular HGB Conc 33.9 % (30-36); Mean Corpuscular Hemoglobin 30.8 PG (26-34); Monocytes Absolute Auto 400 /uL (0-900); Monocytes Percent Auto 6.2 % (3-14); Neutrophils Absolute Auto 4400 /uL (1500-7000); Platelet Count 279 X10^3/uL (150-400); Red Blood Cell Count 4.27 X10^6/uL (4.0-5.2); White Blood Cell Count 6.9 X10^3/uL (4.5-11.0)
[2023-12-08 09:09] LABS: Alanine Aminotransferase 19 IU/L (<35); Albumin 4.1 g/dL (3.5-5.0); Albumin Globulin Ratio 1.7 (1.0-2.8); Alkaline Phosphatase 53 U/L (38-126); Aspartate Aminotransferase 22 IU/L (14-36); BUN Creatinine Ratio 19.3 (6-22); Bilirubin Total 0.8 mg/dL (0.2-1.3); Blood Urea Nitrogen 11 mg/dL (7-17); Calcium 9.1 mg/dL (8.4-10.2); Carbon Dioxide 26 mmol/L (22-32); Chloride 103 mmol/L (98-107); Cholesterol 185 mg/dL (140-199); Estimated Glomerular Filt Rate > 60 mL/min (>60); Globulin 2.4 g/dL (1.7-4.1); Glucose 81 mg/dL (70-100); HDL Cholesterol 52 mg/dL (40-60); HEMOLYSIS < 15 (0-50); LDL Cholesterol Calculated 117 mg/dL (<100); Potassium 4.4 mmol/L (3.4-5.1); Sodium 139 mmol/L (137-145); Total Protein 6.5 g/dL (6.3-8.2); Triglycerides 81 mg/dL (35-150)
[2023-12-08 09:36] LABS: TSH w/ Reflex to FT4 3.58 uIU/mL (0.47-4.68)
== END ==
PROVIDERS: PCP Family Medicine; Referring Provider Family Medicine; Visit Provider Family Medicine
DX: Z13.6 Encounter for screening for cardiovascular disorders (principal); F31.13 Bipolar disorder, current episode manic without psychotic features, severe; F50.2 Bulimia nervosa; F41.1 Generalized anxiety disorder; E03.9 Hypothyroidism, unspecified; G43.909 Migraine, unspecified, not intractable, without status migrainosus
CPT/HCPCS: 36415; 80053; 80061; 84443; 85025

== ENCOUNTER → 2023-12-14 14:18 | Outpatient (CLI) | payer OTHER, SELFPAY ==
[2023-12-14 14:36] LABS: Appearance Urine UA CLEAR; Bilirubin Urine UA NEGATIVE (NEGATIVE); Color Urine UA YELLOW; Glucose Urine UA NEGATIVE (Negative); Ketones Urine UA NEGATIVE (NEGATIVE); Leukocyte Esterase Urine UA NEGATIVE (NEGATIVE); Nitrite Urine UA NEGATIVE (Negative); Occult Blood Urine UA NEGATIVE (Negative); Protein Urine UA NEGATIVE (Negative); Specific Gravity Urine UA >=1.030 (1.000-1.035); Urobilinogen Urine UA 0.2 E.U./dL (0.2)
[2023-12-14 14:40] LABS: Bacteria Urine None Seen; Culture Indicated Urine Cult Not Indicated; RBC Urine None Seen (0-5/HPF); Squamous Epithelial Cell Urine None Seen (0-5/HPF); Urine Volume 10mL (spun); WBC Urine None Seen (0-5/HPF)
== END ==
PROVIDERS: PCP Family Medicine; Referring Provider Family Medicine; Visit Provider Family Medicine
DX: R39.15 Urgency of urination (principal); R30.9 Painful micturition, unspecified
CPT/HCPCS: 36415; 81001